=== PATIENT | male | born 1990 | race African-American/Black ===

== ENCOUNTER 2017-02-27 00:27 | Emergency (ER) | payer OTHER ==
[~2017-02-27] VITALS: Ht 180.3 cm; Wt 65.0 kg
[2017-02-27 00:31] VITALS: BP 129/71; PULSE 102; RESP 15; TEMP 99; O2SAT 97
[2017-02-27 00:50] VITALS: BP 139/73; PULSE 99; RESP 16; O2SAT 100
--- NOTE | 2017-02-27 00:56 | PD ---
HPI Chief Complaint: Chest Pain Time Seen by Provider: 00:43 Travel History International Travel<30 days: No Contact w/Intl Traveler<30days: No Traveled to known affect area: No History of Present Illness HPI 26-year-old male complaining coughing congestion and chest pain. Patient states that he has productive cough for the past week. Patient started having sharp anterior chest wall pain with coughing. Patient states that he has fever . Patient denies any shortness of breath. Patient states that he has intermittent lightheadedness. Patient denies any nausea vomiting diarrhea. Patient denies any history of CAD. Patient denies history hypertension, diabetes, hyperlipidemia. Patient is a nonsmoker. Patient denies history illicit drug abuse. [facility], LATER [facility] Past Medical History Immunizations Current: Yes Tetanus Vaccination: Unknown Influenza Vaccination: Yes Social History Alcohol Use: No Tobacco Use: No Substance Use: No Allergies-Medications (Allergen,Severity, Reaction): Coded Allergies: No Known Allergies (Verified Allergy, Unknown, 02/27/17) Review of Systems General / Constitutional: No: Fever Eyes: No: Visual changes HENT: No: Headaches Cardiovascular: Positive: Chest Pain or Discomfort Respiratory: Positive: Cough, No: Shortness of Breath Gastrointestinal: No: Abdominal Pain Genitourinary: No: Dysuria Musculoskeletal: No: Pain Skin: No Rash Neurologic: No: Weakness Psychiatric: No: Depression Endocrine: No: Polydipsia Hematologic/Lymphatic: No: Easy Bruising Physical Exam Narrative GENERAL: Well-nourished, well-developed patient. SKIN: Focused skin assessment warm/dry. HEAD: Normocephalic. EYES: No scleral icterus. No injection or drainage. NECK: Supple, trachea midline. No JVD or lymphadenopathy. CARDIOVASCULAR: Regular rate and rhythm without murmurs, gallops, or rubs. RESPIRATORY: Breath sounds equal bilaterally. No accessory muscle use. GASTROINTESTINAL: Abdomen soft, non-tender, nondistended. MUSCULOSKELETAL: No cyanosis, or edema. BACK: Nontender without obvious deformity. No CVA tenderness. Data Data Last Documented VS Vital Signs Date Time Temp Pulse Resp B/P (MAP) Pulse Ox O2 Delivery O2 Flow Rate FiO2 02/27/17 00:50 99 16 139/73 (95) 100 02/27/17 00:31 99.0 Room Air Orders Orders Electrocardiogram (02/27/17 00:51) Chest, Single Ap (02/27/17 00:51) MDM Medical Decision Making Medical Screen Exam Complete: Yes Emergency Medical Condition: Yes Interpretation(s) 12:56 AM. EKG shows sinus rhythm nonspecific ST-T wave changes. 1:20 AM. Chest x-ray shows no acute consolidation. Differential Diagnosis Differential diagnosis including bronchitis, pneumonia, angina, PA, PE, pneumothorax. Narrative Course 26-year-old male with coughing congestion and chest wall pain with coughing. Diagnosis Primary Impression: Bronchitis Additional Impression: Chest wall pain Patient Instructions: General Instructions Additional Instructions: Take medication as directed. Follow-up with personal physician. Return if worse. Med/Other Pt SpecificInfo: Prescription(s) given Scripts [Phenergan W Codein] No Conflict Check 10 ML PO Q6HR for Cough, #120 Prov: Aaron Glasgow MD 02/27/17 Meloxicam (Mobic) 15 Mg Tab 15 MG PO DAILY for Pain, #20 TAB 0 Refills Prov: Aaron Glasgow MD 02/27/17 Azithromycin (Zithromax Z-Ranjan) 250 Mg Dspk 250 MG PO DIRECTED for Infection, #1 DSPK 0 Refills 500 MG (2 tabs) day 1, then 1 tab days 2-5. Prov: Aaron Glasgow MD 02/27/17 Disposition: 01 DISCHARGE HOME Condition: Stable Aaron Glasgow MD Feb 27, 2017 00:56
--- NOTE | 2017-02-27 01:11 | RADRPT ---
EXAM DATE/TIME: 02/27/2017 00:48 [facility] COMPARISON: No previous studies available for comparison. INDICATIONS : Cough and fever x 4 days MEDICAL HISTORY : None. SURGICAL HISTORY : None. ENCOUNTER: Initial ACUITY: 4 - 6 days PAIN SCORE: 6/10 LOCATION: Bilateral chest FINDINGS: A single view of the chest demonstrates the lungs to be symmetrically aerated without evidence of mas s, infiltrate or effusion. The cardiomediastinal contours are unremarkable. Osseous structures are intact. CONCLUSION: Normal examination. Del Navarro MD on February 27, 2017 at 1:09 Board Certified Radiologist. This report was verified electronically.
[2017-02-27] MEDS ORDERED: ZITHTAB PO (01:29)
[2017-02-27] MEDS ORDERED: PHENERGAN W CODEIN PO (01:29)
[2017-02-27] MEDS ORDERED: MOBI15TA PO (01:29)
--- NOTE | 2017-02-27 11:53 | EKG ---
Date Performed: 02/27/2017 Time Performed: 00:54:21 PTAGE: 26 years EKG: Sinus rhythm WITH SINUS ARRHYTHMIA NORMAL ECG NO PREVIOUS TRACING DOCTOR: Apple Clements Interpretating Date/Time 02/27/2017 11:52:17
== END 2017-02-27 01:50 | disposition home or self-care (01) ==
LOC: NEPE 00:27
DX: J40 Bronchitis, not specified as acute or chronic (principal); E84.9 Cystic fibrosis, unspecified; R07.89 Other chest pain; I49.9 Cardiac arrhythmia, unspecified
CPT/HCPCS: 71010; 93005; 99284